=== PATIENT | male | born 1945 | race Two or more races ===

== ENCOUNTER 2017-10-19 10:34 | Outpatient (CLI) | payer OTHER | END 2017-10-19 10:46 | disposition home or self-care (01) | LOC: SONOGRAMA 10:34 | DX: N39.0 Urinary tract infection, site not specified (principal); N40.1 Benign prostatic hyperplasia with lower urinary tract symptoms ==

== ENCOUNTER → 2018-01-09 07:12 | Outpatient (CLI) | payer OTHER | END | disposition home or self-care (01) | LOC: LAB 07:12 | DX: I10 Essential (primary) hypertension (principal); E11.9 Type 2 diabetes mellitus without complications ==